=== PATIENT | female | born 1955 | race Caucasian/White ===

== ENCOUNTER 2020-10-11 13:19 | Day surgery (SDC) | payer OTHER ==
[~2020-10-11] VITALS: Ht 157.5 cm; Wt 67.2 kg
[~2020-10-11 13:19] MED LIST: CYAN100 PO; D3-20002000 UNIT PO
--- NOTE | 2020-10-11 17:00 | NUR ---
10/11/20 1700 Cheri Tidwell GOOD CAP REFILL TO LEFT TOES.
--- NOTE | 2020-10-11 17:13 | NUR ---
10/11/20 1713 Cheri Tidwell PT. WITH GOOD CAP REFILL TO LEFT TOES. ICE PACK INTACT & FOOT ELEVATED UP ON PILLOW IN RECLINER.
== END 2020-10-11 17:52 | disposition home or self-care (01) ==
LOC: ORSCSDS 13:19
PROVIDERS: Podiatrist Foot & Ankle Surgery
PROC: 0SGJ04Z Fusion of Left Tarsal Joint with Internal Fixation Device, Open Approach (ICD-10-PCS; principal; 2020-10-11 14:30)
PROC: 0QSR04Z Reposition Left Toe Phalanx with Internal Fixation Device, Open Approach (ICD-10-PCS; principal; 2020-10-11 14:30)
DX: M21.612 Bunion of left foot (principal)
CPT/HCPCS: C1713; C1776; J0171; J0690; J1100; J1885; J2250; J2405; J2704; J3010; J7120

== ENCOUNTER → 2021-05-11 | Outpatient (CLI) | payer OTHER | END | disposition home or self-care (01) | LOC: LAB SHORT 09:43 | DX: D17.22 Benign lipomatous neoplasm of skin and subcutaneous tissue of left arm (principal) | CPT/HCPCS: 88305 ==

== ENCOUNTER 2021-06-16 08:30 | Day surgery (SDC) | payer OTHER ==
[~2021-06-16] VITALS: Ht 157.5 cm; Wt 66.8 kg
[2021-06-16] MEDS ORDERED: TURMERIC1 GM (09:29)
[2021-06-16] MEDS ORDERED: Mag-Tab Sr84 MG (09:30)
== END 2021-06-16 10:42 | disposition home or self-care (01) ==
LOC: ORSCSDS 08:30 → ORD 08:30 → ORSCSDS 09:45
PROVIDERS: Surgery
PROC: 0DJD8ZZ Inspection of Lower Intestinal Tract, Via Natural or Artificial Opening Endoscopic (ICD-10-PCS; principal; 2021-06-16 09:45)
DX: Z12.11 Encounter for screening for malignant neoplasm of colon (principal); Z80.0 Family history of malignant neoplasm of digestive organs; Z79.899 Other long term (current) drug therapy
CPT/HCPCS: J2704; J7120

== ENCOUNTER 2022-10-19 02:46 | Emergency (ER) | payer OTHER ==
[~2022-10-19] VITALS: Ht 157.5 cm; Wt 61.2 kg
[~2022-10-19 02:46] MED LIST changes: +Mag-Tab Sr84 MG; +TURMERIC1 GM
[2022-10-19 03:43] LABS: Albumin, Blood 3.8 g/dL (3.4-5.0); Albumin/Globulin Ratio 1.2 (0.8-1.8); Bilirubin, Total 0.4 mg/dL (0.1-1.0); Bun/Creatinine Ratio 27.7 (12.0-20.0); Calcium, Blood 8.7 mg/dL (8.5-10.1); Creatinine, Blood 0.76 mg/dL (0.40-1.00); Globulin, Blood 3.3 g/dL (2.2-4.0); Total Protein, Blood 7.1 g/dL (6.4-8.2)
[2022-10-19 03:44] LABS: BASOPHILS ABSOLUTE AUTO 0.09 K/mm3 (0.00-0.23); BASOPHILS PERCENT AUTO 1 % (0-2); EOSINOPHILS ABSOLUTE AUTO 0.27 K/mm3 (0.00-0.68); EOSINOPHILS PERCENT AUTO 2 % (0-6); Hematocrit 35.3 % (33.0-51.0); Hemoglobin 12.1 g/dL (11.5-16.0); IMMATURE GRAN ABSOLUTE AUTO 0.03 K/mm3 (0.00-0.10); IMMATURE GRAN PERCENT AUTO 0 % (0-1); LYMPHOCYTES ABSOLUTE AUTO 1.96 K/mm3 (0.84-5.20); LYMPHOCYTES PERCENT AUTO 15 % (21-46); MONOCYTES ABSOLUTE AUTO 0.71 K/mm3 (0.16-1.47); MONOCYTES PERCENT AUTO 5 % (4-13); Mean Corpuscular HGB 29.7 pg (26.0-34.0); Mean Corpuscular HGB Conc 34.3 g/dL (31.5-36.5); Mean Corpuscular Volume 87 fL (80-100); Mean Platelet Volume 9.2 fL (9.1-12.4); NEUTROPHILS ABSOLUTE AUTO 10.48 K/mm3 (1.96-9.15); NEUTROPHILS PERCENT AUTO 77 % (41-73); Platelet Count 296 K/mm3 (150-400); RDW Coefficient Variation 12.2 % (11.7-14.2); Red Blood Cell Count 4.07 M/mm3 (3.80-5.20); White Blood Cell Count 13.54 K/mm3 (4.00-11.30)
[2022-10-19 04:05] LABS: Source, Urine Clean Catch
[2022-10-19 04:17] LABS: Bilirubin, Urine Neg (Neg); Blood, Urine 5+ (Neg); Glucose Qualitative, Urine 2+ (Neg); Ketones, Urine Neg (Neg); Leukocyte Esterase, Urine Neg (Neg); Nitrite, Urine Neg (Neg); Protein, Urine 1+ (Neg); Specific Gravity, Urine 1.015 (1.003-1.022); Urobilinogen, Urine NORM (Normal)
[2022-10-19 05:07] LABS: Appearance, Urine Clear (Clear); Color, Urine Yellow (P-Yellow)
[2022-10-19 05:10] LABS: Bacteria Few /hpf; Red Blood Cells, Urine 50-100 /hpf (0-2); Squamous Epithelial Cells Few /hpf (Few); White Blood Cells, Urine 0-2 /hpf (0-5)
[2022-10-19] MEDS ORDERED: IBUP400 PO (05:56)
[2022-10-19] MEDS ORDERED: Flomax0.4 MG PO (05:56)
[2022-10-19] MEDS ORDERED: ONDA4ODT MM (08:03)
[2022-10-19] MEDS ORDERED: OXYC5 PO (08:03)
== END 2022-10-19 08:14 | disposition home or self-care (01) ==
LOC: ER 02:46
PROVIDERS: Emergency Medicine
DX: N20.1 Calculus of ureter (principal); Z88.8 Allergy status to other drugs, medicaments and biological substances; Z88.6 Allergy status to analgesic agent; Z91.013 Allergy to seafood
CPT/HCPCS: 36415; 74176; 76705; 80053; 81001; 83605; 85025; J0696; J1885; J2270; J2405; J7030